=== PATIENT | male | born 1960 | race Caucasian/White ===

== ENCOUNTER 2023-01-11 14:53 | Emergency (ER) | payer OTHER ==
[2023-01-11 15:03] VITALS: RESP 20; BMI 22.3
[2023-01-11] MEDS ORDERED: ACETAMINOPHEN 500 MG TABLET (FP) PO ONE (15:08)
[2023-01-11] MEDS ORDERED: ACETAMINOPHEN 500 MG TABLET (FP) ONE (15:24)
[2023-01-11 16:52] VITALS: BP 141/88; PULSE 132; TEMP 98
== END 2023-01-11 16:59 | disposition left against medical advice (07) ==
LOC: FER 14:53
DX: S29.001A Unspecified injury of muscle and tendon of front wall of thorax, initial encounter (principal); J93.9 Pneumothorax, unspecified; R00.0 Tachycardia, unspecified; R06.02 Shortness of breath; W01.0XXA Fall on same level from slipping, tripping and stumbling without subsequent striking against object, initial encounter
CPT/HCPCS: 71045-TC-FY; 71101-TC-RT-FY; 71250-TC; 73030-TC-RT-FY; 99284-25